=== PATIENT | male | born 1995 | race Caucasian/White ===

== ENCOUNTER 2017-09-22 20:25 | Emergency (ER) | payer OTHER ==
[~2017-09-22] VITALS: Ht 175.3 cm; Wt 74.8 kg
[2017-09-22 20:29] VITALS: BP_SYST 153
--- NOTE | 2017-09-22 20:31 | NUR ---
Patient to ER bed 06 to gown for evaluation. Side rails up.
--- NOTE | 2017-09-22 20:46 | NUR ---
ER MD Vargas at bedside evaluating the patient.
--- NOTE | 2017-09-22 20:49 | NUR ---
Patient to ER with laceration to right hand anterior aspect base of thumb. Laceration aprox 3 cm L shape, bleeding controlled. Pain 9/10. Patient states that he got injured while he was working on his car. Sensation & motor intact. No other injuries or trauma.
--- NOTE | 2017-09-22 21:02 | NUR ---
Patient off the unit for Xray, ambulatory.
--- NOTE | 2017-09-22 21:14 | NUR ---
Patient back from Xray
[2017-09-22] MEDS ORDERED: DIPH-TET-PERTUS Vaccine 0.5 ML VIAL (ADACEL) I.M. ONE (21:15)
[2017-09-22] MEDS ORDERED: LIDOCAINE/EPI 1% 1:100000 20 ML VIAL INJ ONE (21:15)
--- NOTE | 2017-09-22 22:24 | NUR ---
Patient has a 3 cm laceration to right palm. Dr. Vargas applied sutures using sterile technique. Edges well approximated. Site cleansed with NS & IODINE. Dressing of jenny applied to site. No bleeding noted. Pt tolerated well.
[2017-09-22] MEDS ORDERED: KETOROLAC TROMETHAMINE 60 MG/2 ML VIAL IM ONE (22:30)
[2017-09-22 22:57] VITALS: BP_SYST 142
--- NOTE | 2017-09-22 22:58 | NUR ---
Patient given written and verbal discharge instructions and verbalizes understanding. ER MD discussed with patient the results and treatment provided. Patient in stable condition. ID arm band removed. IV catheter removed intact and dressing applied, no active bleeding. No prescriptions given. Patient educated on pain management and to follow up with PMD. Pain Scale 2/10 tolerable for pt. Opportunity for questions provided and answered. Medication side effect fact sheet provided.
[2017-09-22] MEDS ORDERED: BACITRACIN 1 GM OINT TP ONE (23:00)
== END 2017-09-22 22:57 | disposition home or self-care (01) ==
LOC: SED 20:25
DX: S61.411A Laceration without foreign body of right hand, initial encounter (principal); W01.198A Fall on same level from slipping, tripping and stumbling with subsequent striking against other object, initial encounter; Y93.89 Activity, other specified; Y92.69 Other specified industrial and construction area as the place of occurrence of the external cause; Y99.8 Other external cause status
CPT/HCPCS: 12002; 73130; 90471; 90715; 96372; 99284; J1885